=== PATIENT | female | born 2000 ===

== ENCOUNTER 2024-08-02 20:50 | Emergency (ER) | payer SELFPAY ==
[~2024-08-02] VITALS: Ht 167.6 cm; Wt 68.0 kg
[2024-08-02 21:05] VITALS: O2SAT 99
[2024-08-02] MEDS: FAMOTIDINE 20MG TABLET PO ONE (21:32)
[2024-08-02] MEDS: PREDNISONE 20MG TABLET PO ONE (21:32)
[2024-08-02] MEDS ORDERED: P20 MT (22:41)
[2024-08-02] MEDS ORDERED: FAMO-135 MT (22:41)
[2024-08-02] MEDS ORDERED: DIPH25CA83 MT (22:41)
[2024-08-03 00:14] VITALS: BP 128/83; PULSE 94; RESP 18; TEMP 36.9; O2SAT 99
== END 2024-08-03 00:15 | disposition home or self-care (01) ==
LOC: ER 20:50
DX: T78.40XA Allergy, unspecified, initial encounter (principal); X58.XXXA Exposure to other specified factors, initial encounter
CPT/HCPCS: 99283; J7512